=== PATIENT | male | born 1965 | race Two or more races ===

== ENCOUNTER 2018-03-23 22:02 | Emergency (ER) | payer SELFPAY ==
[~2018-03-23] VITALS: Ht 170.2 cm; Wt 99.8 kg
[2018-03-23 22:08] VITALS: BP 143/80
== END 2018-03-23 22:13 | disposition left against medical advice (07) ==
LOC: EDBD 22:02 → ER 22:09
DX: R07.89 Other chest pain (principal); Z53.21 Procedure and treatment not carried out due to patient leaving prior to being seen by health care provider